=== PATIENT | female | born 1955 | race Caucasian/White ===

== ENCOUNTER → 2016-07-25 | Outpatient (CLI) | payer MEDICARE | LOC: GMAM 15:16 | PROVIDERS: ATTEND Family Medicine | DX: N39.0 Urinary tract infection, site not specified (principal); M10.00 Idiopathic gout, unspecified site ==

== ENCOUNTER → 2016-12-21 | Outpatient (CLI) | payer MEDICARE | LOC: GMAM 10:32 | PROVIDERS: ATTEND Family Medicine | DX: M10.00 Idiopathic gout, unspecified site (principal); I10 Essential (primary) hypertension; E78.2 Mixed hyperlipidemia; Z79.899 Other long term (current) drug therapy ==

== ENCOUNTER → 2016-12-25 | Outpatient (CLI) | payer MEDICARE | END | disposition home or self-care (01) | LOC: MAMMO 11:22 | PROVIDERS: ATTEND Family Medicine | DX: Z12.31 Encounter for screening mammogram for malignant neoplasm of breast (principal) ==

== ENCOUNTER → 2017-08-07 | Outpatient (CLI) | payer MEDICARE ==
--- NOTE | 2017-08-07 15:28 | RAD ---
EXAM DESCRIPTION: Wrist,Right 3 Views CLINICAL HISTORY: PAIN IN RIGHT WRIST COMPARISON: None. TECHNIQUE: 3 views right FINDINGS: Diffuse degenerative changes are observed throughout the wrist and ulnar radial articulation. Degenerative changes are also observed in the metacarpal carpal articulation of the first digit diffuse osteopenia is observed. Pronounced metacarpal phalangeal joint arthritis is also observed throughout the hand. IMPRESSION: Pronounced diffuse degenerative changes are observed throughout the wrist. Electronically signed by: Felice Jackson MD 08/07/2017 3:27 PM [facility]
== END ==
LOC: RAD 08:01
PROVIDERS: ATTEND Orthopaedic Surgery
DX: M25.531 Pain in right wrist (principal)

== ENCOUNTER → 2017-12-05 | Outpatient (CLI) | payer MEDICARE ==
--- NOTE | 2017-12-05 12:05 | RAD ---
EXAM DESCRIPTION: Ankle,Right 3 Views CLINICAL HISTORY: 62 years Female, PAIN IN RIGHT ANKLE COMPARISON: Radiographs of the right ankle dated 06/04/2017. TECHNIQUE: AP, oblique and lateral radiographs. FINDINGS: The visualized bones appear well mineralized. No acute fracture or dislocation. 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 The soft tissues appear grossly unremarkable. 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 Electronically signed by: Ayla Amin MD 12/05/2017 12:04 PM CDT
--- NOTE | 2017-12-05 12:08 | RAD ---
EXAM DESCRIPTION: Foot,Right 3 Views CLINICAL HISTORY: PAIN IN RIGHT FOOT COMPARISON: None Available. TECHNIQUE: AP, LATERAL, AND OBLIQUE FINDINGS: The visualized bones appear osteopenic. No acute fracture or dislocation. Old erosions are identified in the head of the fifth metatarsal. Severe degenerative changes are identified in the talonavicular joint. No gross soft tissue abnormality is noted. IMPRESSION: Old erosions are identified in the head of the fifth metatarsal. Severe degenerative changes are identified in the talonavicular joint. Electronically signed by: Ayla Amin MD 12/05/2017 12:07 PM CDT
== END ==
LOC: RAD 07:42
PROVIDERS: ATTEND Orthopaedic Surgery
DX: M25.571 Pain in right ankle and joints of right foot (principal); M79.671 Pain in right foot; M19.079 Primary osteoarthritis, unspecified ankle and foot

== ENCOUNTER → 2017-12-19 | Outpatient (CLI) | payer MEDICARE ==
--- NOTE | 2017-12-19 14:59 | RAD ---
EXAM DESCRIPTION: Cervical Spine,Flex/Ext CLINICAL HISTORY: 62 years Female, SEROPOSITIVE RHEUMATIOD ARTHRITIS COMPARISON: None. FINDINGS: Flexion and extension views of the cervical spine show no evidence of dynamic instability at any level in the cervical spine. Minimal grade 1 anterolisthesis at C3-4 appears stable and is likely related to underlying facet joint degeneration. The disc spaces are well-maintained. Facet joint degeneration is noted at C2-3 and C3-4. IMPRESSION: Facet joint degeneration, but no evidence of dynamic instability. Electronically signed by: Johann Keller MD 12/19/2017 2:58 PM CDT
== END ==
LOC: RAD 11:00
PROVIDERS: ATTEND Nurse Practitioner Family
DX: M05.89 Other rheumatoid arthritis with rheumatoid factor of multiple sites (principal)

== ENCOUNTER 2018-06-10 05:51 | Day surgery (SDC) | payer MEDICARE ==
[2018-06-10] MEDS ORDERED: PROPARACAINE 0.5% OPHTH SOL 15 ML BTTL ONE (10:48)
[2018-06-10] MEDS ORDERED: TROP 1%/CYCLOPEN 1%/PHENYL 2% DROPS ONE (10:48)
== END 2018-06-10 14:14 | disposition home or self-care (01) ==
LOC: AMB 05:51
PROVIDERS: ATTEND Ophthalmology
DX: H26.492 Other secondary cataract, left eye (principal)

== ENCOUNTER → 2018-09-25 | Outpatient (CLI) | payer MEDICARE ==
--- NOTE | 2018-09-26 08:31 | MRI ---
EXAM DESCRIPTION: MRI right shoulder CLINICAL HISTORY: Fall injury one half weeks ago. Shoulder pain COMPARISON: None. TECHNIQUE: Multiplanar, multisequence MR images of the right shoulder FINDINGS: Near complete supraspinatus tendon tear sparing thin posterior bursal fibers. Majority of the tendon retracted to the mid humeral level. Muscle volume is mildly decreased with grade 1 fatty infiltration High-grade partial tear of the infraspinatus tendon with interstitial delamination and partial retraction. The retracted lax interstitial component of the tendon is seen at the medial humeral level, coronal image 12, axial image 14 and 15. Marked thinning of the residual tendon. Chronic cystic change along the greater tuberosity. Infraspinatus muscle volume is mildly decreased with grade 1 fatty infiltration Teres minor tendon and muscle are normal. Subscapularis tendinosis. Normal muscle volume with minimal fatty streaking Complete tear of the long head biceps tendon, adherent in the bicipital groove. Blunted labral anchor. No acute labral detachment No full-thickness glenohumeral chondrosis or chronic osteochondral lesion Mild acromioclavicular osteoarthritis. Type II acromion with anterior lateral downsloping. Subacromial enthesophyte and contiguous inferior lateral acromial spur IMPRESSION: Near complete supraspinatus tendon tear. Contiguous high-grade partial tear of the infraspinatus tendon Complete tear of the long head biceps tendon adherent in the bicipital groove Electronically signed by: Baudilio Andrews MD 09/26/2018 8:28 AM CDT
== END ==
LOC: MRI 09:11
PROVIDERS: ATTEND Family Medicine
DX: M75.101 Unspecified rotator cuff tear or rupture of right shoulder, not specified as traumatic (principal); S46.101A Unspecified injury of muscle, fascia and tendon of long head of biceps, right arm, initial encounter

== ENCOUNTER → 2018-10-18 | Outpatient (CLI) | payer MEDICARE | LOC: LAB.O 10:20 | PROVIDERS: ATTEND Orthopaedic Surgery | DX: Z01.818 Encounter for other preprocedural examination (principal) ==

== ENCOUNTER 2018-11-05 05:32 | Day surgery (SDC) | payer MEDICARE ==
--- NOTE | 2018-11-01 13:42 | HP ---
CHIEF COMPLAINT: Right shoulder pain. HISTORY OF PRESENT ILLNESS: Ms. Vann is a 63-year-old female with a history of pain in the shoulder that has been getting progressively worse for several months. She says she has had an injury previously. She says she has no radiation of pain and says the pain is directly in the shoulder. She has attempted conservative measures, however, has failed to gain relief. Because of her ongoing symptoms, she has requested operative intervention. After discussing the risks, benefits and alternatives to that, she has given informed consent for rotator cuff repair. PAST SURGICAL HISTORY: 1. Bladder suspension. 2. Hysterectomy. 3. Carpal tunnel release. 4. Fusion. MEDICATIONS: 1. Telmisartan. 2. Hydrocodone. 3. Prednisone. 4. Verapamil. 5. Plaquenil. 6. Aspirin. 7. Metoprolol. 8. Arava. 9. Nexium. 10. Benadryl. 11. Duloxetine. 12. Bactrim. ALLERGIES: METHOTREXATE, REMICADE, ENBREL. CODE STATUS: Full code. IMMUNIZATIONS: Up to date. FAMILY HISTORY: None pertinent to today's complaint. SOCIAL HISTORY: The patient does not smoke or use any illicit drugs. She does drink on occasion. REVIEW OF SYSTEMS: Negative except as indicated in the History of Present Illness. PHYSICAL EXAMINATION: VITAL SIGNS: Blood pressure 154/101. Pulse 76. Height 5'1". Weight 145 pounds. MENTAL STATUS: The patient is awake, alert, and is able to give a good history and participate in the physical. The patient is oriented to person, place and time. SKIN: Normal tone and turgor. MUSCULOSKELETAL: She is very tender to palpation in the subacromial space. She has minor tenderness over the acromioclavicular joint today. The entire extremity is warm and well perfused. She maintains full 5/5 strength in flexion and extension of the elbow. She has full range in abduction and forward flexion, however, is very uncomfortable. She has a negative belly press maneuver. 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 She has decreased strength in abduction secondary to pain. She has a history of chronic biceps tendon tear that she said occurred about 20 years. That was noted also on her MRI and it appears to be adherent to the bicipital groove. IMAGING: MRI was done and shows near full thickness tearing of the supraspinatus. there does appear to be at last a partial tear of the infraspinatus. As noted above, she does have tear of the long head of the biceps tendon, however, it is adherent and chronic. ASSESSMENT: 1. Rotator cuff tear. 2. Rheumatoid arthritis. 3. Chronic biceps tendon tear. PLAN: At this point, just given her symptoms, we are going to plan on rotator cuff repair. We may consider a subacromial decompression, however, I do not think just given the chronic nature of her biceps tendon that that needs to be addressed at this time. It does not seem as though her symptoms are coming directly from that. We have discussed the risks, benefits, and alternatives to that and the patient has given informed consent. #[id number] [facility]
[2018-11-05] MEDS ORDERED: SODIUM CHL 0.9% 50ML MIN-BAG+ 50 ML IVPB ONE (07:38)
[2018-11-05] MEDS ORDERED: LACTATED RINGERS 1,000 ML ONE (07:38)
[2018-11-05] MEDS ORDERED: ceFAZolin SODIUM 1 GM VIAL ONE ×2 (07:38→07:59)
[2018-11-05] MEDS ORDERED: BUPIVACAINE 0.5% 30 ML VIAL INJ ONE (07:59)
[2018-11-05] MEDS ORDERED: VANCOMYCIN HCL INJ 1,000 MG VIAL IVPB ONE (07:59)
[2018-11-05] MEDS ORDERED: BUPIVACAINE LIPOSOME 13.3 MG/ML VIAL INJ ONE (07:59)
[2018-11-05] MEDS ORDERED: fentaNYL CITRATE INJ 50 MCG/ML AMP ONE (09:52)
[2018-11-05] MEDS ORDERED: MIDAZOLAM INJ 2 MG/2 ML VIAL ONE (09:52)
[2018-11-05] MEDS ORDERED: ROCURONIUM BROMIDE 10 MG/ML VIAL ONE (09:53)
[2018-11-05] MEDS ORDERED: ONDANSETRON INJ 4 MG/2 ML VIAL IV ONE (10:00)
[2018-11-05] MEDS ORDERED: DEXAMETHASONE INJ 10 MG/ML VIAL IV ONE (10:00)
[2018-11-05] MEDS ORDERED: KETOROLAC TROMETHAMINE INJ 30 MG/ML VIAL IV ONE (10:00)
[2018-11-05] MEDS ORDERED: LIDOCAINE 1% 10 ML VIAL INJ ONE ×2 (10:00)
[2018-11-05] MEDS ORDERED: PROPOFOL 200 MG/20 ML VIAL IV ONE ×2 (10:00)
[2018-11-05] MEDS ORDERED: ACETAMINOPHEN IV 1000MG 100 ML ONE (10:41)
[2018-11-05] MEDS ORDERED: SUGAMMADEX SODIUM 200 MG/2 ML VIAL IV ONE (12:04)
[2018-11-05 13:40] VITALS: BP 148/76; TEMP 98.4; O2SAT 95
--- NOTE | 2018-11-06 14:23 | OP ---
DATE OF PROCEDURE: 11/05/18 PREOPERATIVE DIAGNOSIS: 1. Rotator cuff tear of the right shoulder. POSTOPERATIVE DIAGNOSIS: 1. Rotator cuff tear of the right shoulder. PROCEDURE: 1. Rotator cuff repair. 2. Acromioplasty. SURGEON: German Medina MD. DRAPERY AND UPHOLSTERY ESTIMATOR: John Nunes CST, SA-C. ANESTHESIA: General anesthesia. COMPLICATIONS: None. FINDINGS: Large tear of the rotator cuff involving the supraspinatus and extending into the infraspinatus. INDICATION: Ms. Vann has a long history of shoulder pain. She has had ongoing symptoms despite conservative measures. Evaluation revealed a tear of the rotator cuff. Because of that and the failure of conservative measures, we discussed options. After discussing the risks, benefits and alternatives to operative therapy, the patient has given informed consent for that. PROCEDURE: The patient was brought to the Operating Room and placed in the supine position. General anesthesia was induced and the patient's arm and shoulder were sterilely prepped and draped. Following prepping and draping, an incision was made at the lateral border of the acromion. Dissection was carried down to the deltoid with a splint between the anterior and middle heads. A bursectomy was performed and the rotator cuff was identified. Following identification of the cuff and the size of the area, an acromioplasty was performed. After that, the cuff was debrided and the anatomic footprint was decorticated on the humerus. Six suture anchors were used to form a SpeedBridge type construct to reapproximate the tendon. After reapproximation of the tendon, the arm was taken through a range of motion and there was no mobility at the repair site. The wound was very thoroughly irrigated and deltoid was reapproximated. The skin was reapproximated with a combination of running and interrupted sutures. Sterile dressing was placed. The patient was placed in a sling. The patient was awoken from anesthesia and taken to Recovery. POSTOPERATIVE PLAN: She will be doing range of motion of the digits and wrist. She will do not therapy on the shoulder for at least 6 weeks to allow for healing of that large rotator cuff tear. We will see her back in clinic in 2 weeks. #[id number] [facility]
== END 2018-11-05 13:38 | disposition home or self-care (01) ==
LOC: AMB 05:32
PROVIDERS: ATTEND Orthopaedic Surgery
DX: M75.101 Unspecified rotator cuff tear or rupture of right shoulder, not specified as traumatic (principal); S46.211A Strain of muscle, fascia and tendon of other parts of biceps, right arm, initial encounter; M06.9 Rheumatoid arthritis, unspecified; Z90.710 Acquired absence of both cervix and uterus; Z88.8 Allergy status to other drugs, medicaments and biological substances; Z79.2 Long term (current) use of antibiotics; Z79.1 Long term (current) use of non-steroidal anti-inflammatories (NSAID); Z79.899 Other long term (current) drug therapy
CPT/HCPCS: 01630; 23420; 80307; J0690; J1100; J1885; J2250; J2405; J3010; J3370; J3490; J7050; J7120

== ENCOUNTER → 2018-12-17 | Outpatient (CLI) | payer MEDICARE | LOC: GMAM 10:31 | PROVIDERS: ATTEND Family Medicine | DX: E55.9 Vitamin D deficiency, unspecified (principal); R39.198 Other difficulties with micturition; E78.2 Mixed hyperlipidemia ==

== ENCOUNTER → 2019-07-15 | Outpatient (CLI) | payer MEDICARE ==
--- NOTE | 2019-07-15 21:19 | MAM ---
EXAM DESCRIPTION: 3D Screening BILATERAL : Digital Mammography. CLINICAL HISTORY: 64 years Female ANNUAL SCREENING . No complaints. Personal history of breast cancer. Remote family history of breast cancer. Menarche age 9. Childbirth age 18. Hysterectomy age unknown. HRT less than 5 years ago. Benign right breast biopsy. Lifetime risk of developing breast cancer (Tyrer-Cuzick model)(%): 7.5. COMPARISON: 2-D digital screening bilateral mammography December 2016.. TECHNIQUE: Bilateral CC and MLO projection full-field images, digital tomosynthesis mammographic technique. Bilateral digital 2-D full-field MLO images. CAD not available for tomosynthesis or 2-D images. FINDINGS: The breast parenchymal density pattern is: Scattered areas of fibroglandular density. No skin thickening or nipple retraction. Bilateral solitary parenchymal calcifications. Bilateral vascular calcifications. Focal asymmetry central middle third left breast 12:00 is stable. No new focal, stellate mass or density, focal asymmetry , and no suspicious microcalcifications bilaterally. Stable mammograms compared to prior study. Taking into account, differences in mammographic technique. IMPRESSION: Benign exam. BIRAD CATEGORY: 2 BENIGN FINDINGS. RECOMMENDATIONS: FOLLOW UP: Routine digital bilateral mammographic screening, one year interval from July 2018. Written communication explaining the IMPRESSION and follow-up, will be mailed to the patient and referring health care provider. According to the [employer], yearly mammograms are recommended starting at age 40 and continuing as long as a woman is in good health. Any breast change noted on a breast self-exam should be reported promptly to the patient's healthcare provider. Breast MRI is recommended for women with an approximately 20-25% or greater lifetime risk of breast cancer, including women with a strong family history of breast or ovarian cancer and women who have been treated for Hodgkin's disease. A negative mammographic report should not delay tissue diagnosis in patients with significant clinical history or physical findings. Extremely dense breast tissue limits the sensitivity of digital mammography. Electronically signed by: John Mayfield MD 07/15/2019 9:18 PM [employer]
== END ==
LOC: MAMMO 11:00
PROVIDERS: ATTEND Family Medicine
DX: Z12.31 Encounter for screening mammogram for malignant neoplasm of breast (principal)

== ENCOUNTER 2019-11-26 10:00 | Emergency (ER) | payer MEDICARE ==
--- NOTE | 2019-11-26 10:24 | ED.PDOC ---
History of Present Illness - General Stated Complaint: L hip pain Time Seen by Provider: 11/26/19 10:13 Source: patient, family Exam Limitations: no limitations - History of Present Illness Initial Comments: 64 y/o female with RA reports a two week history of L hip and low back pain associated with lesions L groin. She thought the lesions might be chiggers from the garden and her pain from RA. She was dx with shingles late in the course and her pain is out of control. She may take lortab 10/325 2 tabs po q 6 on schedule. Today she is requesting "something stronger". Her PCP is aware that she will need higher doses of her routine pain meds Severity: severe Location: extremities Improving Factors: nothing Worsening Factors: nothing Associated Symptoms: blisters Allergies/Adverse Reactions: Allergies Benzyl Alcohol [From Enbrel] Allergy (Verified 11/04/18 09:27) Etanercept [From Enbrel] Allergy (Verified 11/04/18 09:27) Infliximab [From Remicade] Allergy (Verified 11/04/18 09:27) Methotrexate Allergy (Verified 11/04/18 09:27) Tromethamine [From Enbrel] Allergy (Verified 11/04/18 09:27) Home Medications: Ambulatory Orders Aspirin [Aspirin EC] 81 mg PO DAILY 03/12/14 Esomeprazole Magnesium [Nexium] 40 mg PO DAILY 03/12/14 HYDROcodone 10MG/APAP 325MG [[place] 10/325] 1 tab PO QID 03/12/14 Hydroxychloroquine [Plaquenil] 400 mg PO BID 03/12/14 RX: Metoprolol Tartrate 50 mg PO BEDTIME 03/12/14 RX: Prednisone 10 mg PO DAILY 03/12/14 RX: diphenhydrAMINE HCL [Benadryl] 25 mg PO DAILY PRN 03/12/14 DULoxetine HCL [Cymbalta] 30 mg PO DAILY 07/03/15 Leflunomide [Arava] 10 mg PO DAILY 11/04/18 RX: Verapamil HCl 80 mg PO DAILY 11/04/18 Sulfa/Trimeth 800/160 (Ds) Tab [Bactrim DS] 1 tablet PO DAILY 11/04/18 Telmisartan [Micardis] 80 mg PO DAILY 11/04/18 Review of Systems - Review of Systems Constitutional: States: no symptoms reported EENTM: States: no symptoms reported Respiratory: States: no symptoms reported Cardiology: States: no symptoms reported Gastrointestinal/Abdominal: States: no symptoms reported Genitourinary: States: no symptoms reported Musculoskeletal: States: joint pain - L hip Skin: States: lesions - L groin, healing typical Zoster lesions Neurological: States: no symptoms reported Past Medical History (General) - Patient Medical History Hx Stroke: Yes - CVA 2004 Hx Congestive Heart Failure: No Hx Hypertension: Yes Hx Diabetes: No Hx Gastroesophageal Reflux: Yes - Vaccination History Hx Influenza Vaccination: Yes - 2014 Hx Pneumococcal Vaccination: Yes - 2014 - Social History Hx Tobacco Use: No Family Medical History - Family History Mother Family History: Unknown Living Status: Physical Exam - Physical Exam General Appearance: Anxious Neck: non-tender, full range of motion, supple Respiratory: no respiratory distress Back Exam: normal inspection - no lesions Extremity: other - crusting, healing Zoster lesions L groin Skin Exam: other - groin lesions Departure - Departure Clinical Impression: Thigh shingles Disposition: Discharge to Home or Self Care Condition: Good Instructions: Shingles (DC) Referrals: Baudilio Richard MD [Primary Care Provider] - 1-2 Weeks Home Medications: Ambulatory Orders Aspirin [Aspirin EC] 81 mg PO DAILY 03/12/14 Esomeprazole Magnesium [Nexium] 40 mg PO DAILY 03/12/14 HYDROcodone 10MG/APAP 325MG [[place] 10/325] 1 tab PO QID 03/12/14 Hydroxychloroquine [Plaquenil] 400 mg PO BID 03/12/14 RX: Metoprolol Tartrate 50 mg PO BEDTIME 03/12/14 RX: Prednisone 10 mg PO DAILY 03/12/14 RX: diphenhydrAMINE HCL [Benadryl] 25 mg PO DAILY PRN 03/12/14 DULoxetine HCL [Cymbalta] 30 mg PO DAILY 07/03/15 Leflunomide [Arava] 10 mg PO DAILY 11/04/18 RX: Verapamil HCl 80 mg PO DAILY 11/04/18 Sulfa/Trimeth 800/160 (Ds) Tab [Bactrim DS] 1 tablet PO DAILY 11/04/18 Telmisartan [Micardis] 80 mg PO DAILY 11/04/18
[2019-11-26 10:33] VITALS: TEMP 98.6
[2019-11-26] MEDS: PROMETHAZINE HCL INJ 25 MG/ML VIAL IM ONE (10:38)
[2019-11-26] MEDS: HYDROmorphone HCL INJ 2 MG/ML VIAL IM ONE (10:40)
[2019-11-26 11:02] VITALS: BP 185/82; O2SAT 96
== END 2019-11-26 10:59 | disposition home or self-care (01) ==
LOC: ER 10:00
DX: B02.9 Zoster without complications (principal); I10 Essential (primary) hypertension; K21.9 Gastro-esophageal reflux disease without esophagitis; Z79.82 Long term (current) use of aspirin; Z79.899 Other long term (current) drug therapy; Z86.73 Personal history of transient ischemic attack (TIA), and cerebral infarction without residual deficits; Z88.8 Allergy status to other drugs, medicaments and biological substances
CPT/HCPCS: J1170; J2550

== ENCOUNTER → 2019-12-30 | Outpatient (CLI) | payer MEDICARE ==
--- NOTE | 2019-12-31 13:39 | MRI ---
EXAM DESCRIPTION: Lumbar Spine w/o Contrast CLINICAL HISTORY: 64 years Female, RADICULOPATHY LUMBAR REGION COMPARISON: Radiographs of the lumbar spine dated 12/25/2019. TECHNIQUE: Multiplanar multiecho imaging of the lumbar spine was performed without intravenous contrast administration. FINDINGS: The vertebral body heights are well-maintained with no acute compression deformity. Multilevel intervertebral disc space narrowing is noted. The conus medullaris terminates at T12-L1 intervertebral disc space. The visualized spinal cord demonstrates no signal abnormality. L1-L2: No evidence of disc herniation. No canal stenosis or neural foraminal narrowing. Bilateral facet arthropathy. L2-L3: 2 mm retrolisthesis of L2 over L3. 4 mm diffuse disc bulge with no central canal stenosis. Moderate bilateral neural foraminal narrowing is identified secondary to facet arthropathy. L3-L4: 4 mm diffuse disc bulge, ligamentum flavum hypertrophy and facet arthropathy with mild central canal stenosis. The thecal sac measures 9 mm. Moderate to severe bilateral neural foraminal narrowing is noted secondary to severe facet arthropathy. L4-L5: 3 mm diffuse disc bulge with no significant central canal stenosis. Moderate to severe bilateral neural foraminal narrowing is noted secondary to severe facet arthropathy. L5-S1: 5 mm diffuse disc bulge with no significant central canal stenosis. Noted to severe right and moderate left neural foraminal narrowing is noted secondary to severe facet arthropathy. The visualized prevertebral and paravertebral soft tissues appear unremarkable. IMPRESSION: Multilevel degenerative disc disease and facet arthropathy throughout the lumbar spine with variable degrees of neural foraminal narrowing, worse from L3-L4 through L5-S1 levels. Electronically signed by: Ayla Amin MD 12/31/2019 1:37 PM CDT
== END ==
LOC: MRI 11:12
PROVIDERS: ATTEND Family Medicine
DX: M54.16 Radiculopathy, lumbar region (principal); M51.36 Other intervertebral disc degeneration, lumbar region; M12.9 Arthropathy, unspecified; M48.061 Spinal stenosis, lumbar region without neurogenic claudication; M48.07 Spinal stenosis, lumbosacral region

== ENCOUNTER → 2020-02-06 | Outpatient (CLI) | payer MEDICARE ==
--- NOTE | 2020-02-06 13:48 | RAD ---
EXAM DESCRIPTION: Pelvis CLINICAL HISTORY: 64 years Female, HIP PAIN LEFT COMPARISON: None. FINDINGS: Single view of the pelvis demonstrates a symmetric appearance of the hips with very little degenerative change and no evidence of fracture or dislocation or osteonecrosis. Focal subcentimeter area of sclerosis in the medial trochanteric region of the left hip may very well represent a bone island. An osteoid osteoma would be a consideration although a lucent nidus is not identified. The patient has a history of malignancy a sclerotic metastasis is thought less likely but not entirely excluded., Particularly if the patient remains symptomatic for an extended period consider MRI examination left hip for further evaluation to include the medial trochanteric region. IMPRESSION: 1. Essentially normal appearance of the left hip joint without evidence of degenerative change osteonecrosis or fracture or dislocation. 2. Small subcentimeter slightly irregular sclerotic focus adjacent to the lesser tuberosity left hip suggesting either a bone island or possibly an osteoid osteoma or less likely a sclerotic metastatic deposit if the patient has a history of malignancy. 3. Consider MR examination left hip if the patient remains symptomatic. Electronically signed by: Baudilio Saavedra MD 02/06/2020 1:47 PM CDT
== END ==
LOC: RAD 09:00
PROVIDERS: ATTEND Orthopaedic Surgery
DX: M25.552 Pain in left hip (principal); M89.9 Disorder of bone, unspecified

== ENCOUNTER 2020-05-24 05:18 | Day surgery (SDC) | payer MEDICARE ==
[2020-05-24] MEDS ORDERED: DEXAMETHASONE INJ 10 MG/ML VIAL ONE ×2 (07:30→08:52)
[2020-05-24] MEDS ORDERED: LIDOCAINE 1% 10 ML VIAL INJ ONE ×2 (07:30→08:39)
[2020-05-24] MEDS ORDERED: BUPIVACAINE 0.5% 30 ML VIAL INJ ONE ×2 (07:30→08:39)
[2020-05-24] MEDS ORDERED: DEXAMETHASONE INJ 10 MG/ML VIAL IV ONE (08:32)
== END 2020-05-24 08:56 | disposition home or self-care (01) ==
LOC: AMB 05:18
PROVIDERS: ATTEND Family Medicine Sports Medicine
DX: M54.5 Low back pain (principal); M54.16 Radiculopathy, lumbar region; M47.896 Other spondylosis, lumbar region; E78.5 Hyperlipidemia, unspecified; I10 Essential (primary) hypertension; K21.9 Gastro-esophageal reflux disease without esophagitis; Z86.010 Personal history of colon polyps; M85.80 Other specified disorders of bone density and structure, unspecified site; M06.9 Rheumatoid arthritis, unspecified; I65.29 Occlusion and stenosis of unspecified carotid artery; Z88.8 Allergy status to other drugs, medicaments and biological substances; Z79.899 Other long term (current) drug therapy
CPT/HCPCS: 62323; 76000; J1100